=== PATIENT | male | born 2000 | race Caucasian/White ===

== ENCOUNTER 2022-11-09 12:02 | Emergency (ER) | payer OTHER ==
[~2022-11-09] VITALS: Ht 170.2 cm; Wt 77.5 kg
[2022-11-09 13:56] VITALS: BP 144/71
[2022-11-09] MEDS ORDERED: PRED20TA2 PO (14:08)
[2022-11-09] MEDS ORDERED: AUG875T PO (14:08)
== END 2022-11-09 14:27 | disposition home or self-care (01) ==
LOC: ER 12:02
DX: H66.92 Otitis media, unspecified, left ear (principal); Z79.2 Long term (current) use of antibiotics; Z79.899 Other long term (current) drug therapy; Z88.0 Allergy status to penicillin

== ENCOUNTER 2022-12-20 13:15 | Emergency (ER) | payer OTHER ==
[~2022-12-20] VITALS: Ht 172.7 cm; Wt 81.8 kg
[~2022-12-20 13:15] MED LIST: AUG875T PO; PRED20TA2 PO
[2022-12-20 16:41] VITALS: BP 120/79
[2022-12-20] MEDS ORDERED: ACETAMINOPHEN 500 MG TAB PO ONE (16:45)
[2022-12-20] MEDS ORDERED: PENI500T2 PO (16:50)
[2022-12-20] MEDS ORDERED: PRED20TA2 PO (16:50)
[2022-12-20] MEDS ORDERED: ACET1CAP14 PO (16:50)
[2022-12-20] MEDS ORDERED: BENZ1LOZ3 MT (16:50)
[2022-12-20] MEDS ORDERED: cefTRIAXone SOD 1,000 MG VL IM ONE (17:00)
[2022-12-20] MEDS ORDERED: DexAMETHasone SOD PHOS 10MG/1ML VIAL INJ IM ONE (17:00)
== END 2022-12-20 17:16 | disposition home or self-care (01) ==
LOC: ER 13:15
DX: J03.80 Acute tonsillitis due to other specified organisms (principal); B96.89 Other specified bacterial agents as the cause of diseases classified elsewhere; Z79.2 Long term (current) use of antibiotics; Z79.899 Other long term (current) drug therapy; Z88.0 Allergy status to penicillin; Z20.822 Contact with and (suspected) exposure to COVID-19
CPT/HCPCS: 36415; 87426; 87804; 96372; 99284; J0696; J1100